=== PATIENT | female | born 1930 | race African-American/Black ===

== ENCOUNTER 2018-04-24 21:04 | Emergency (ER) | payer BC, MEDICARE ==
[~2018-04-24] VITALS: Ht 160 cm; Wt 54.4 kg
[~2018-04-24 21:04] MED LIST: DIGOXIN250 MCG ORAL; METOPROLOL TART50 M1 ORAL
[2018-04-24] MEDS ORDERED: LOSARTAN POTASS50 MG ORAL (21:26)
[2018-04-24 21:30] VITALS: BP 183/85
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
[2018-04-24] MEDS ORDERED: Tylenol #3 tab (300mg/30mg) ORAL ONE (22:00)
--- NOTE | 2018-04-24 22:07 | NUR ---
ED Nurse Note: pt refused acetaminophen and codine medication 300mg/ 30 mg. medication returned to [facility].
[2018-04-24] MEDS ORDERED: IBUPROFEN600 MG ORAL (22:43)
[2018-04-24] MEDS ORDERED: ACETAMINOPHEN-1 EAC1 ORAL (22:43)
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
[2018-04-24 22:49] VITALS: BP 144/80
[2018-04-24 22:50] VITALS: BP 140/80
--- NOTE | 2018-04-24 22:52 | NUR ---
ED Nurse Note: PT is DC per ERMD order. pt is alert and oriented times 4. pt left with all belongings, DC notes and prescriptions. pt understood and is able to teach back DC notes and prescriptons. pt vital signs, status and condition is reported to ERMD prior to DC. pt vital signs, status and condition is stable for discharge. pt is instructed to report to primary MD as soon as possible. pt is instructed to return to ER as soon as possible if any variance in condition. pt is able to walk with steady gait. ID band removed.
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
== END 2018-04-24 23:08 | disposition home or self-care (01) ==
LOC: EMR 22:00
DX: S40.011A Contusion of right shoulder, initial encounter (principal); V43.52XA Car driver injured in collision with other type car in traffic accident, initial encounter; Y92.410 Unspecified street and highway as the place of occurrence of the external cause; I10 Essential (primary) hypertension
CPT/HCPCS: 99283